=== PATIENT | male | born 1985 | race African-American/Black ===

== ENCOUNTER 2016-12-24 11:04 | Emergency (ER) | payer OTHER ==
--- NOTE | 2016-12-24 11:48 | ER Document Report ---
ED Medical Screen (RME) - General Chief Complaint: Neck Swelling Stated Complaint: NECK PAIN Notes: 31-year-old male presents with sudden left facial swelling that started yesterday. Patient denies any dental pain admits to mild difficulty swallowing I have greeted and performed a rapid initial assessment of this patient. A comprehensive ED assessment and evaluation of the patient, analysis of test results and completion of the medical decision making process will be conducted by additional ED providers. PHYSICAL EXAMINATION: GENERAL: Well-appearing, well-nourished and in no acute distress. EYES: Pupils equal round extraocular movements intact, conjunctiva are normal. ENT: Left submandibular swelling NECK: Normal range of motion LUNGS: No respiratory distress Musculoskeletal: Normal range of motion NEUROLOGICAL: Normal speech, normal gait. PSYCH: Normal mood, normal affect. SKIN: Warm, Dry, normal turgor, no rashes or lesions noted. TRAVEL OUTSIDE OF THE [place] IN LAST 30 DAYS: No - Related Data Allergies/Adverse Reactions: No Known Allergies Allergy (Verified 12/24/16 11:41) Past Medical History Renal/ Medical History: Denies: Hx Peritoneal Dialysis Physical Exam - Vital signs Vitals: Temp Pulse Resp BP Pulse Ox 99.6 F 105 H 19 157/102 H 92 12/24/16 11:07 12/24/16 11:07 12/24/16 11:07 12/24/16 11:07 12/24/16 11:07 Course - Vital Signs Vital signs: Temp Pulse Resp BP Pulse Ox 99.6 F 105 H 19 157/102 H 92 12/24/16 11:07 12/24/16 11:07 12/24/16 11:07 12/24/16 11:07 12/24/16 11:07
--- NOTE | 2016-12-24 12:20 | ER Document Report ---
ED General - General Chief Complaint: Neck Swelling Stated Complaint: NECK PAIN Mode of Arrival: Ambulatory Information source: Patient Notes: This is a 31-year-old male previously healthy who presents with swelling to the left side of his neck. He states that this began yesterday. He also has a mild sore throat. He denies any fevers or chills. He is breathing, speaking, swallowing without difficulty. He denies any dental pain. He states this has never happened before. TRAVEL OUTSIDE OF THE [place] IN LAST 30 DAYS: No - Related Data Allergies/Adverse Reactions: No Known Allergies Allergy (Verified 12/24/16 11:41) Past Medical History - General Information source: Patient - Social History Smoking Status: Former Smoker Frequency of alcohol use: Rare Drug Abuse: None Family History: Reviewed & Not Pertinent Patient has suicidal ideation: No Patient has homicidal ideation: No - Medical History Medical History: Negative Renal/ Medical History: Denies: Hx Peritoneal Dialysis Surgical Hx: Negative Review of Systems - Review of Systems Notes: REVIEW OF SYSTEMS: CONSTITUTIONAL : Denies fever, chills, or sweats. Denies recent illness. EENT: Denies eye, ear, or mouth pain or symptoms. Denies nasal or sinus congestion. Sore throat as per history of present illness CARDIOVASCULAR: Denies chest pain. RESPIRATORY: Denies cough, cold, or chest congestion. Denies shortness of breath, difficulty breathing, or wheezing. GASTROINTESTINAL: Denies abdominal pain. Denies nausea, vomiting, or diarrhea. GENITOURINARY: Denies difficulty urinating, painful urination, burning, frequency, or blood in urine. MUSCULOSKELETAL: Denies back pain or joint pain or swelling. SKIN: Denies rash or skin lesions. HEMATOLOGIC : Denies easy bruising or bleeding. LYMPHATIC: No complaints NEUROLOGICAL: Denies altered mental status or loss of consciousness. Denies headache. ALL OTHER SYSTEMS REVIEWED AND NEGATIVE. Physical Exam - Vital signs Vitals: Temp Pulse Resp BP Pulse Ox 99.6 F 105 H 19 157/102 H 92 12/24/16 11:07 12/24/16 11:07 12/24/16 11:07 12/24/16 11:07 12/24/16 11:07 - Notes Notes: PHYSICAL EXAMINATION: GENERAL: Well-appearing, well-nourished and in no acute distress. Pleasant and conversant, tolerating secretions without difficulty. HEAD: Atraumatic, normocephalic. EYES: Pupils equal round and reactive to light, extraocular movements intact, sclera anicteric, conjunctiva are normal. ENT: nares patent, oropharynx clear without exudates. Moist mucous membranes. No obvious dental decay or gingival edema. NECK: Normal range of motion, firm swelling to the left submandibular region. LUNGS: Breath sounds clear to auscultation bilaterally and equal. No wheezes rales or rhonchi. HEART: Regular rate and rhythm without murmurs ABDOMEN: Soft, nontender, normoactive bowel sounds. No guarding, no rebound. No masses appreciated. EXTREMITIES: Normal range of motion, no pitting or edema. NEUROLOGICAL: Cranial nerves grossly intact. Normal speech. No gross focal motor or sensory deficits appreciated. PSYCH: Normal mood, normal affect. SKIN: Warm, Dry, normal turgor, no rashes or lesions noted. Course - Re-evaluation Re-evalutation: 12/24/16 17:[address] results with Dr. Gao, ENT in [place], who agrees with abx for submandibular gland inflammation/infection and recommends sour candy/lemon drops as well. Will follow in office next week for sialolithiasis and for thyroid goiter. Pt remained hemodynamically stable in the ER. He has had no difficulty swallowing speaking or breathing. There is no acute airway issue. He agrees to follow up with ENT next week. Strict return precautions were discussed. Also discussed elevated blood pressure today, and patient to follow up with PCP regarding this. - Vital Signs Vital signs: Temp Pulse Resp BP Pulse Ox 98.6 F 79 18 134/91 H 96 12/24/16 18:39 12/24/16 18:39 12/24/16 18:39 12/24/16 18:39 12/24/16 18:39 - Laboratory Result Diagrams: 12/24/16 12:53 12/24/16 12:53 Laboratory results interpreted by me: 12/24/16 12:53 RBC 5.81 H MCV 76 L MCH 25.7 L RDW 16.1 H Discharge - Discharge Clinical Impression: Sialoadenitis of submandibular gland, Substernal thyroid goiter Condition: Stable Disposition: HOME, SELF-CARE Additional Instructions: You have an inflammation of your left submandibular gland, with calcification/ stone within the gland. Take antibiotics as directed. Also, use hard candy/lemon drops to stimulate salivation. You also have an enlarged thyroid gland (goiter). Please follow up as discussed with ENT: Take your CD of you CT scan with you. Dr. Gao [facility] [address] [place], [place] Call on Monday to schedule appointment. Return to the ER for increased swelling, fever greater than 101, any difficulty speaking/swallowin/breathing, or any worsening symptoms or concerns. HIGH BLOOD PRESSURE, NOT TREAT: When your blood pressure was taken today it was elevated. We do not think you need to have your blood pressure treated today. Sometimes, stress or illness causes a temporary elevation of your blood pressure. We suggest that you get your blood pressure measured again during the next few days to see if this elevated blood pressure is more than a temporary abnormality. If your blood pressure is greater than 150/90 on each occasion, you must have treatment. Some simple things you can do to help are: If you have blood pressure medicine but aren't using it regularly, start taking it again. Get some aerobic exercise for at least 20 minutes on a daily basis. (See your doctor before beginning a new exercise program.) Eat a low-fat diet. Lose excess weight. Avoid salty foods and avoid adding salt to any of the foods you eat. Avoid diet pills, decongestants, "energizing" herbs, and other medicines that elevate blood pressure. If left untreated, hypertension greatly enhances your risk for developing heart disease and strokes. Please don't ignore this problem. FOLLOW-UP CARE: If you have been referred to a physician for follow-up care, call the physician s office for an appointment as you were instructed or within the next two days. If you experience worsening or a significant change in your symptoms, notify the physician immediately or return to the Emergency Department at any time for re-evaluation. Prescriptions: Amox Tr/Potassium Clavulanate [Augmentin 875-125 Tablet] 1 tab PO BID 10 Days Forms: Elevated Blood Pressure, Return to School
[2016-12-24 13:44] LABS: ABSOLUTE BASOPHILS # (AUTO) 0.1 10^3/uL (0.0-0.2); ABSOLUTE EOSINOPHILS # (AUTO) 0.2 10^3/uL (0.0-0.6); ABSOLUTE LYMPHOCYTES (AUTO) 2.3 10^3/uL (0.5-4.7); ABSOLUTE MONOCYTES (AUTO) 0.7 10^3/uL (0.1-1.4); ABSOLUTE NEUT (AUTO) 6.2 10^3/uL (1.7-8.2); BASOPHILS % (AUTO) 0.7 % (0-2); EOSINOPHILS % (AUTO) 1.6 % (0-6); HEMOGLOBIN 14.9 g/dL (13.5-17.0); HGB HCT DIFFERENCE 0.7; LYMPHOCYTES % (AUTO) 24.7 % (13-45); MEAN CORPUSCULAR HEMOGLOBIN 25.7 pg (27.0-33.4); MEAN CORPUSCULAR HGB CONC 33.9 g/dL (32.0-36.0); MEAN CORPUSCULAR VOLUME 76 fl (80-97); RED BLOOD COUNT 5.81 10^6/uL (4.35-5.55); RED CELL DISTRIBUTION WIDTH 16.1 % (11.5-14.0); WHITE BLOOD COUNT 9.4 10^3/uL (4.0-10.5)
[2016-12-24 13:57] LABS: ALANINE AMINOTRANSFERASE 36 U/L (21-72); ALBUMIN 4.7 g/dL (3.5-5.0); ALKALINE PHOSPHATASE 60 U/L (38-126); ANION GAP 15 (5-19); ASPARTATE AMINO TRANSFERASE 23 U/L (17-59); BILIRUBIN,DIRECT 0.2 mg/dL (0.0-0.4); BILIRUBIN,TOTAL 0.9 mg/dL (0.2-1.3); BLOOD UREA NITROGEN 9 mg/dL (7-20); CALCIUM 9.3 mg/dL (8.4-10.2); CARBON DIOXIDE 25 mmol/L (22-30); CHLORIDE 104 mmol/L (98-107); CREATININE RESULT 0.86 mg/dL (0.52-1.25); GLUCOSE 97 mg/dL (75-110); POTASSIUM 4.3 mmol/L (3.6-5.0); SODIUM 144.1 mmol/L (137-145); TOTAL PROTEIN 7.8 g/dL (6.3-8.2)
[2016-12-24] MEDS ORDERED: CLONIDINE HCL 0.1 MG TABLET PO ONE (15:57)
[2016-12-24] MEDS ORDERED: CLINDAMYCIN 900 MG/D5W RTU 50 ML IV ONE (16:51)
[2016-12-24 18:39] VITALS: BP 134/91
== END 2016-12-24 18:40 | disposition home or self-care (01) ==
LOC: ER 11:04
DX: K11.20 Sialoadenitis, unspecified (principal); E04.8 Other specified nontoxic goiter; M54.2 Cervicalgia; J02.9 Acute pharyngitis, unspecified; Z87.891 Personal history of nicotine dependence
CPT/HCPCS: 36415; 70491; 80053; 84443; 85025; 86308; 87040; 87070; 87880; 96365; 99284